=== PATIENT | male | born 1960 | race Hispanic/Latino ===

== ENCOUNTER 2020-04-20 22:27 | Emergency (ER) | payer SELFPAY ==
[~2020-04-20] VITALS: Ht 175.3 cm; Wt 89.8 kg
[2020-04-20] MEDS ORDERED: DEXAMETHASONE SOD PHOS 10 MG/1 ML VIAL IM STA (23:40)
[2020-04-20] MEDS ORDERED: ACETAMINOPHEN 325 MG TAB PO STA (23:42)
[2020-04-20] MEDS ORDERED: AZITHROMYCIN 250 MG TAB PO ONE (23:45)
[2020-04-20] MEDS ORDERED: ACETAMINOPHEN 325 MG TAB ONE (23:59)
[2020-04-21 01:52] VITALS: BP 138/74
== END 2020-04-21 01:54 | disposition home or self-care (01) ==
LOC: ER 22:43
DX: R50.9 Fever, unspecified (principal); R06.02 Shortness of breath; R05 Cough
CPT/HCPCS: 71045; 99283; J1100